=== PATIENT | male | born 1970 | race African-American/Black ===

== ENCOUNTER 2023-12-24 18:34 | Inpatient (IN) | payer OTHER ==
[2023-12-24 20:08] VITALS: BMI 33.0
[2023-12-25] MEDS ORDERED: MAGNESIUM HYDROX 2400MG/30ML ORAL SUSPENSION 30 ML CUP PO PRN (07:10)
[2023-12-25] MEDS ORDERED: ONDANSETRON *ODT* 4 MG TABLET SL PRN (07:10)
[2023-12-25] MEDS ORDERED: hydrOXYzine PAMOATE 25 MG CAPSULE (FP) PO PRN (07:10)
[2023-12-25] MEDS ORDERED: BENZONATATE 200 MG CAPSULE PO PRN (07:10)
[2023-12-25] MEDS ORDERED: DICYCLOMINE HCL 10 MG CAPSULE PO PRN (07:10)
[2023-12-25] MEDS ORDERED: NALOXONE (NARCAN) HCL 4 MG/0.1 ML SPRAY NS PRN (07:10)
[2023-12-25] MEDS ORDERED: NALOXONE HCL 0.4 MG/ML VIAL IM PRN (07:10)
[2023-12-25] MEDS ORDERED: METHOCARBAMOL 500 MG TABLET PO PRN (07:10)
[2023-12-25] MEDS ORDERED: POLYETHYLENE GLYCOL (HEALTHYLAX) 3350 17 GM PACKET PO PRN (07:10)
[2023-12-25] MEDS ORDERED: IBUPROFEN 400 MG TABLET (FP) PO PRN (07:10)
[2023-12-25] MEDS ORDERED: MAG HYDROX/AL HYDROX/SIMETH 30 ML UNIT-DOSE CUP PO PRN (07:10)
[2023-12-25] MEDS ORDERED: LOPERAMIDE HCL 2 MG CAPSULE PO PRN (07:10)
[2023-12-25] MEDS ORDERED: cloNIDine HCL 0.1 MG TABLET ONE (07:44)
[2023-12-25] MEDS: cloNIDine HCL 0.1 MG TABLET PO ONE (07:55)
[2023-12-25] MEDS ORDERED: LIDOCAINE 5% TOPICAL PATCH TP PRN (10:03)
[2023-12-25] MEDS ORDERED: PRENATAL VITAMINS W/ FOLIC ACID TABLET (FP) PO ONE (10:44)
[2023-12-25] MEDS: PRENATAL VITAMINS W/ FOLIC ACID TABLET (FP) PO SCH (10:47)
[2023-12-25] MEDS: NYSTATIN 100000 UNIT/GM TOPICAL OINTMENT 15 GM TUBE TP SCH (12:52)
[2023-12-25] MEDS: BACITRACIN 0.9 GM PACKET TP SCH (12:52)
[2023-12-25] MEDS: LISINOPRIL 20 MG TABLET PO SCH (17:05)
[2023-12-25] MEDS: cloNIDine HCL 0.1 MG TABLET PO PRN (17:05)
[2023-12-25] MEDS: IBUPROFEN 600 MG TABLET (FP) PO PRN (17:07)
[2023-12-25] MEDS ORDERED: MELATONIN 5 MG TABLETS PO SCH (22:00)
[2023-12-25] MEDS: THIAMINE 100 MG TABLET PO SCH (22:32)
[2023-12-25] MEDS: LIDOCAINE PATCH REMOVAL MC SCH (22:32)
[2023-12-25] MEDS: BUDESONIDE/FORMETEROL FUMARATE 160/4.5 mcg INHALER IH SCH (22:32)
[2023-12-26] MEDS: SUVOREXANT 10 MG TABLET PO PRN (00:50)
[2023-12-26 09:21] LABS: HEMATOCRIT 37.7 % (35.4-49); HEMOGLOBIN 12.9 GM/dL (11.7-16.9); MCH 29.9 pg (25.7-33.7); MCHC 34.3 g/dl (32.0-35.9); MEAN CELL VOLUME 87.2 fl (80-96); MEAN PLT VOLUME 7.5 fl (7.5-11.1); PLATELET COUNT 229 10^3/uL (134-434); RBC 4.32 M/mm3 (4.00-5.60); RDW 12.4 % (11.9-15.9); WHITE BLOOD COUNT 3.7 K/mm3 (4.0-10.0)
[2023-12-26 09:24] LABS: CHLORIDE 105 mmol/L (98-107); SODIUM 140 mmol/L (136-145)
[2023-12-26 09:26] LABS: ANION GAP 5 mmol/L (4-13); CALCIUM 8.6 mg/dL (8.5-10.1); CO2 30 mmol/L (21-32)
[2023-12-26 09:27] LABS: BLOOD UREA NITROGEN 10.9 mg/dL (7-18); GLUCOSE,RANDOM 151 mg/dL (74-106)
[2023-12-26 09:29] LABS: SGPT/ALT 56 U/L (13-61)
[2023-12-26 09:30] LABS: SGOT/AST 25 U/L (15-37)
[2023-12-26 09:31] LABS: BILIRUBIN,TOTAL 0.3 mg/dL (0.2-1); TOT PROT 5.9 g/dl (6.4-8.2)
[2023-12-26 09:32] LABS: ALK PHOS 80 U/L (45-117)
[2023-12-26] MEDS ORDERED: LORazepam 1 MG TABLET PO PRN (10:13)
[2023-12-26] MEDS ORDERED: chlordiazePOXIDE HCL 25 MG CAPSULE PO PRN (10:15)
[2023-12-26] MEDS ORDERED: LORazepam 2 MG TABLET PO SCH (11:00)
[2023-12-26] MEDS: chlordiazePOXIDE HCL 25 MG CAPSULE PO SCH (11:05)
[2023-12-26] MEDS: GABAPENTIN 100 MG CAPSULE PO SCH (13:05)
[2023-12-26] MEDS: guaiFENesin 600 MG TABLET.ER (FP) PO PRN (13:05)
[2023-12-26] MEDS: ACETAMINOPHEN 325 MG TABLET (FP) PO PRN (17:34)
[2023-12-26] MEDS: BACLOFEN 10 MG TABLET (FP) PO PRN (22:13)
[2023-12-27] MEDS: BENZOCAINE/MENTHOL (CHLORASEPTIC ) LOZENGE MM PRN (04:55)
[2023-12-27] MEDS: TOLNAFTATE 1% CREAM 15 GM TUBE TP SCH (11:29)
[2023-12-27] MEDS ORDERED: PNEUMOC 20-VAL CONJ-DIP CRM/PF 0.5 ML SYRINGE IM ONE (12:00)
[2023-12-27] MEDS ORDERED: FLU VACC QS2022-23(6MOS UP)/PF 60 MCG/0.5 ML SYRINGE IM ONE (15:48)
[2023-12-27] MEDS ORDERED: PNEUMOCOCCAL 23 VACCINE 0.5 ML VIAL IM ONE (16:00)
[2023-12-27] MEDS: BISMUTH SUBSALICYLATE 524 MG/30 ML PO PRN (18:30)
[2023-12-28] MEDS ORDERED: LORazepam 1 MG TABLET PO SCH (05:00)
[2023-12-28] MEDS: chlordiazePOXIDE HCL 25 MG CAPSULE PO SCH (05:44)
[2023-12-28] MEDS: PNEUMOC 20-VAL CONJ-DIP CRM/PF 0.5 ML SYRINGE IM ONE (11:46)
[2023-12-28] MEDS: HYDROCHLOROTHIAZIDE 25 MG TABLET (FP) PO SCH (14:35)
[2023-12-28 21:40] LABS: HIV INTERPRETATION NEGATIVE (NEGATIVE)
[2023-12-28] MEDS: SUVOREXANT 10 MG TABLET PO PRN (22:09)
[2023-12-29] MEDS ORDERED: chlordiazePOXIDE HCL 10 MG CAPSULE PO PRN
[2023-12-29] MEDS ORDERED: LORazepam 0.5 MG TABLET PO PRN
[2023-12-29] MEDS: chlordiazePOXIDE HCL 10 MG CAPSULE PO SCH (04:46)
[2023-12-29] MEDS ORDERED: LORazepam 0.5 MG TABLET PO SCH (05:00)
[2023-12-29] MEDS: amLODIPine BESYLATE 5 MG TABLET (FP) PO SCH (11:48)
[2023-12-29] MEDS: LISINOPRIL 20 MG TABLET PO ONE (14:26)
[2023-12-29] MEDS: amLODIPine BESYLATE 5 MG TABLET (FP) PO ONE (14:26)
[2023-12-29] MEDS: cloNIDine HCL 0.1 MG TABLET PO ONE (16:35)
[2023-12-30] MEDS ORDERED: LORazepam 0.5 MG TABLET PO ONE (05:00)
[2023-12-30] MEDS: chlordiazePOXIDE HCL 10 MG CAPSULE PO SCH (05:44)
[2023-12-30 06:03] VITALS: TEMP 97.7
[2023-12-30] MEDS: LISINOPRIL 20 MG TABLET PO SCH (09:45)
[2023-12-30] MEDS: amLODIPine BESYLATE 10 MG TABLET (FP) PO SCH (09:45)
[2023-12-30 09:49] VITALS: BP 149/93; PULSE 96; RESP 20
[2023-12-31] MEDS ORDERED: chlordiazePOXIDE HCL 10 MG CAPSULE PO ONE (05:00)
== END 2023-12-30 09:47 | disposition home or self-care (01) | DRG 774 ==
LOC: YASAS 18:34 → Y3N 12-25 12:04
PROVIDERS: ADMIT Surgery; ATTEND Surgery
PROC: HZ2ZZZZ Detoxification Services for Substance Abuse Treatment (ICD-10-PCS; principal; 2023-12-25)
DX: F10.230 Alcohol dependence with withdrawal, uncomplicated (principal); F14.20 Cocaine dependence, uncomplicated; F19.282 Other psychoactive substance dependence with psychoactive substance-induced sleep disorder; F41.9 Anxiety disorder, unspecified; F32.A Depression, unspecified; I10 Essential (primary) hypertension; J44.9 Chronic obstructive pulmonary disease, unspecified; K21.9 Gastro-esophageal reflux disease without esophagitis; B35.3 Tinea pedis; M54.50 Low back pain, unspecified; G89.29 Other chronic pain; R76.11 Nonspecific reaction to tuberculin skin test without active tuberculosis; Z99.89 Dependence on other enabling machines and devices; Z87.891 Personal history of nicotine dependence; Z59.00 Homelessness unspecified
CPT/HCPCS: 36415; 71046-TC-FY; 80053; 80305; 80307; 83036; 85027; 86780; 87389; 90677; 93005; 93010; G0009; J0475